=== PATIENT | male | born 1955 | race Caucasian/White ===

== ENCOUNTER 2018-01-13 15:10 | Emergency (ER) | payer OTHER ==
[~2018-01-13] VITALS: Ht 188 cm; Wt 129.3 kg
--- NOTE | ~2018-01-13 | EKG ---
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
[2018-01-13 16:14] LABS: ABSOLUTE NEUTROPHILS 3.4 thou/uL (1.4-8.2); BASOPHILS 0.8 % (0.0-2.0); EOSINOPHILS 4.6 % (0.0-3.0); HEMATOCRIT 45.8 % (42.0-52.0); HEMOGLOBIN 15.6 gm/dL (14.0-18.0); LYMPHOCYTES 32.9 % (24.0-44.0); MCH 28.4 pg (26.0-34.0); MCHC 34.1 g/dL (28.0-37.0); MCV 83.4 fL (80.0-100.0); MONOCYTES 7.7 % (1.0-8.0); RDW 15.2 % (10.5-14.5); WBC 6.3 thou/uL (4.0-11.0)
[2018-01-13 16:20] LABS: ANION GAP 9 mmol/L (7-16); BUN 32 mg/dL (7-18); CHLORIDE 103 mmol/L (98-107); CO2 25 mmol/L (21-32); CREATININE 1.6 mg/dL (0.7-1.3); GLUCOSE 90 mg/dL (74-106); POTASSIUM 4.8 mmol/L (3.5-5.1); SODIUM 137 mmol/L (136-145)
[2018-01-13 16:30] LABS: SGOT 40 U/L (15-37); SGPT 81 U/L (30-65); TOTAL BILIRUBIN 0.5 mg/dL (<0.1-1.0); TOTAL PROTEIN 7.4 g/dL (6.4-8.2); TROPONIN-I < 0.04 ng/mL (<0.06)
[2018-01-13 16:39] LABS: PLATELET COUNT 111 thou/uL (150-400)
[2018-01-13 17:17] VITALS: BP 139/76
[2018-01-13] MEDS ORDERED: VITAMIN D1000 UNI1 PO (17:20)
[2018-01-13] MEDS ORDERED: OMEPRAZOLE 20 M20 MG PO (17:20)
[2018-01-13] MEDS ORDERED: LOSARTAN-HCTZ1 EAC1 PO (17:21)
[2018-01-13] MEDS ORDERED: SPIRONOLACTONE100 M1 PO (17:21)
== END 2018-01-13 17:18 | disposition home or self-care (01) ==
LOC: ER 15:10
PROVIDERS: Physician Assistant
DX: R07.9 Chest pain, unspecified (principal); R20.2 Paresthesia of skin; M79.89 Other specified soft tissue disorders; K21.9 Gastro-esophageal reflux disease without esophagitis; I10 Essential (primary) hypertension